=== PATIENT | female | born 1945 | race Caucasian/White ===

== ENCOUNTER 2016-05-12 05:30 | Inpatient (IN) | payer MEDICARE ==
[~2016-05-12] VITALS: Ht 162.6 cm; Wt 80.9 kg
[~2016-05-12 05:30] MED LIST: 0.9% SODIUM CHLORIDE 10 ML VIAL IVP ONE; ACET1TAB12 PO; AMLO-511 PO; BACL10TA PO; DEXAMETHASONE SOD PHOS 4 MG/ML VIAL IVP ONE; DULO60CA44 PO; EPHEDrine SULFATE 50 MG/ML VIAL IM ONE; FLUT16H NASAL; FentaNYL CITRATE-PF 250 MCG/5 ML VIAL IVP ONE; GABA-531 PO; KETOROLAC TROMETHAMINE 60 MG/2 ML VIAL IM ONE; LIDOCAINE HCL/PF 2% 5 ML VIAL IM ONE; LORA0.5T2 PO; LOSA50TA37 PO; METOCLOPRAMIDE HCL 5 MG/ML 2 ML VIAL IVP ONE; MIDAZOLAM HCL 2 MG/2 ML VIAL IVP ONE; MORPHINE SULFATE/PF 0.5 MG/ML 10 ML AMP IVP ONE; MULT-248 PO; ONDANSETRON HCL 4 MG/2 ML VIAL IVP ONE; PROPOFOL 1% 20 ML VIAL IVP ONE; ROCURONIUM BROMIDE 10 MG/ML 5 ML VIAL IVP ONE; TRIA15CR10 TP; ZOLP10 PO
[2016-05-12] MEDS ORDERED: RINGERS SOLUTION,LACTATED 1,000 ML IV ONE ×3 (05:48→07:53)
[2016-05-12] MEDS ORDERED: CeFAZolin 2 GM/DEXTROSE 50 ML IV ONE ×2 (05:49→07:30)
[2016-05-12] MEDS ORDERED: GUM MASTIC/STORAX/MSAL/ALCOHOL LIQUID 0.67 ML VIAL TP ONE (06:51)
[2016-05-12] MEDS ORDERED: BUPIVACAINE HCL/PF 0.5% 30 ML VIAL ONE (06:51)
[2016-05-12] MEDS ORDERED: BUPIVACAINE 0.25%/EPI 1:200,000/PF 10 ML VIAL ONE (06:51)
[2016-05-12] MEDS ORDERED: THROMBIN, BOVINE 20000 UNITS/VIAL POWDER TP ONE (06:52)
[2016-05-12] MEDS ORDERED: HYDROmorphone 2 MG/ML SYRINGE IVP PRN ×2 (07:00)
[2016-05-12] MEDS ORDERED: FentaNYL CITRATE-PF 100 MCG/2 ML VIAL IVP PRN (07:00)
[2016-05-12] MEDS ORDERED: MEPERIDINE-PF 25 MG/ML SYRINGE IVP PRN (07:00)
[2016-05-12] MEDS ORDERED: SCOPOLAMINE HYDROBROMIDE 1.5 MG PATCH TD ONE (07:00)
[2016-05-12] MEDS ORDERED: ZOLPIDEM TARTRATE 5 MG TABLET PO PRN (07:00)
[2016-05-12] MEDS ORDERED: ONDANSETRON HCL 4 MG/2 ML VIAL IVP PRN (07:00)
[2016-05-12] MEDS ORDERED: PROMETHAZINE HCL 25 MG/ML VIAL IM PRN (07:00)
[2016-05-12] MEDS ORDERED: CYCLOBENZAPRINE HCL 10 MG TABLET PO PRN (07:00)
[2016-05-12] MEDS ORDERED: ACETAMINOPHEN/CODEINE 300-30 MG TABLET PO PRN (07:00)
[2016-05-12] MEDS ORDERED: MAG HYDROX/AL HYDROX/SIMETH 30 ML SUSP UDCUP PO PRN (07:15)
[2016-05-12] MEDS ORDERED: DiphenhydrAMINE HCL 50 MG/ML VIAL IVP PRN (07:15)
[2016-05-12] MEDS ORDERED: ZOLPIDEM TARTRATE 10 MG TABLET PO PRN (07:15)
[2016-05-12] MEDS ORDERED: BENZOCAINE/MENTHOL LOZENGE [8 LOZENGES/PACKET] PO PRN (07:15)
[2016-05-12] MEDS ORDERED: PROMETHAZINE HCL 12.5 MG in SODIUM CHLORIDE 0.9% 50 ML IV PRN (07:15)
[2016-05-12] MEDS ORDERED: VANCOMYCIN HCL 1 GM/VIAL ONE (07:47)
[2016-05-12 09:50] VITALS: BP 125/74
[2016-05-12] MEDS: OXYGEN THERAPY IH SCH ×2 (11:49→20:00)
[2016-05-12 14:00] VITALS: BP 125/69
[2016-05-12] MEDS: BACLOFEN 10 MG TABLET PO SCH ×2 (15:56→21:14)
[2016-05-12] MEDS ORDERED: GABAPENTIN 300 MG CAPSULE PO SCH (16:00)
[2016-05-12] MEDS: GABAPENTIN 300 MG CAPSULE PO SCH ×2 (16:29→21:14)
[2016-05-12 18:27] VITALS: BP 129/66
[2016-05-12 19:30] VITALS: BP 111/61
[2016-05-12] MEDS ORDERED: DULoxetine HCL 60 MG CAPSULE PO SCH (21:00)
[2016-05-12] MEDS: FLUTICASONE PROPIONATE 50 MCG/SPRAY 16 GM NASAL SPRAY NASAL SCH (21:20)
[2016-05-12 23:10] VITALS: BP 113/67
[2016-05-13 03:45] VITALS: BP 97/72
[2016-05-13 07:55] VITALS: BP 121/70
[2016-05-13] MEDS: FLUTICASONE PROPIONATE 50 MCG/SPRAY 16 GM NASAL SPRAY NASAL SCH (08:00)
[2016-05-13] MEDS: OXYGEN THERAPY IH SCH (08:00)
[2016-05-13] MEDS: BACLOFEN 10 MG TABLET PO SCH (08:00)
[2016-05-13] MEDS: GABAPENTIN 300 MG CAPSULE PO SCH (08:01)
[2016-05-13] MEDS ORDERED: LOSARTAN POTASSIUM 50 MG TABLET PO SCH (09:00)
[2016-05-13] MEDS ORDERED: AmLODIPine BESYLATE 5 MG TABLET PO SCH (09:00)
== END 2016-05-13 10:29 | disposition home or self-care (01) | DRG 520 ==
LOC: 4E 05:30
PROVIDERS: ADMIT Orthopaedic Surgery Orthopaedic Surgery of the Spine; ATTEND Orthopaedic Surgery Orthopaedic Surgery of the Spine
PROC: 00NY0ZZ Release Lumbar Spinal Cord, Open Approach (ICD-10-PCS; principal; 2016-05-12 07:30)
DX: M47.896 Other spondylosis, lumbar region (principal); M48.06 Spinal stenosis, lumbar region; I10 Essential (primary) hypertension; Z68.30 Body mass index [BMI] 30.0-30.9, adult; Z96.1 Presence of intraocular lens; E66.3 Overweight; F32.9 Major depressive disorder, single episode, unspecified; Z98.890 Other specified postprocedural states; Z87.01 Personal history of pneumonia (recurrent); Z90.710 Acquired absence of both cervix and uterus; Z98.42 Cataract extraction status, left eye; Z98.41 Cataract extraction status, right eye; Z79.899 Other long term (current) drug therapy
CPT/HCPCS: 87081; 97161; 97165; 97535; J0690; J1100; J1885; J2250; J2274; J2405; J2704; J2765; J3010; J3370; J3490; J7120